=== PATIENT | male | born 1975 | race Asian ===

== ENCOUNTER → 2022-03-14 17:35 | Outpatient (CLI) | payer OTHER, SELFPAY ==
[2022-03-14 19:10] LABS: Influenza A - CEPHEID Flu A NEGATIVE (NEGATIVE); Influenza B - CEPHEID Flu B NEGATIVE (NEGATIVE)
[2022-03-14 19:26] LABS: COVID-19 CEPHEID PCR (VTM/NP) POSITIVE (Negative)
== END ==
PROVIDERS: PCP Family Medicine; Visit Provider Student in an Organized Health Care Education/Training Program
DX: R05.8 Other specified cough (principal)
CPT/HCPCS: 0240U